=== PATIENT | female | born 1960 | race Caucasian/White ===

== ENCOUNTER → 2020-01-11 | Emergency (ER) | payer BC, MEDICAID ==
[~2020-01-11] VITALS: Ht 162.6 cm; Wt 113.4 kg
[2020-01-11 21:26] VITALS: BP_SYST 156
== END | disposition still patient (30) ==
LOC: SED 21:26
DX: R42 Dizziness and giddiness (principal); Z53.21 Procedure and treatment not carried out due to patient leaving prior to being seen by health care provider
CPT/HCPCS: 99281